=== PATIENT | male | born 1940 | race Caucasian/White ===

== ENCOUNTER → 2019-07-13 | Outpatient (CLI) | payer MEDICARE ==
[~2019-07-13] MED LIST: ASPI81TA85 PO; LISI10TA15 PO; OMEP-218 PO
--- NOTE | 2019-07-14 07:53 | RADONC ---
RADIATION ONCOLOGY CONSULTATION NOTE: DATE: 07/13/2019 CHART NUMBER: [id number] DIAGNOSIS: Prostate cancer. STAGE: III A, T2c, N0, M0, PSA 30.1, [place] score 8 (4-4), grade group 4 ECOG PERFORMANCE STATUS: 0 Mr. 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 HISTORY OF PRESENT ILLNESS: The patient was in his usual state of health and reported that he underwent the CT scan for what was thought to be kidney stones. The scan was done 02/08/2019 and showed an enlarged prostate. On 03/09/2019, the patient underwent a PSA and the PSA was found to be 38.1. On 05/19/2019, the patient underwent prostatic needle biopsy and pathology revealed a Merlin score 8 (4-4) adenocarcinoma involving almost all samples biopsied bilaterally. There is also noted to be perineural invasion. The patient has met with two urologist and has decided to undergo external beam radiation therapy with IMRT/IGRT. He is scheduled for placement of fiducial markers and initiation of Eligard on July 20, 2019. PAST MEDICAL HISTORY: The patient's past medical history is positive for bronchitis, Lyme disease. Three abdominal hernia repairs, kidney stones, arthritis and depression. He has a history of hypertension as well. ALLERGIES: The patient has no known drug allergies. SOCIAL HISTORY: The patient does not smoke cigarettes nor abuse alcohol. FAMILY HISTORY: The patient's family history is negative for prostate cancer or other malignancies. REVIEW OF SYSTEMS: The patient's review of systems is noncontributory. He denies nausea, vomiting, fevers, chills, night sweats, diplopia, headaches, anxiety or depression, anorexia, weight loss, visual disturbances, chest pain, urinary or bowel difficulties, bone pain, or neurological problems. PHYSICAL EXAMINATION: The patient is a well-developed, well-nourished male in no acute distress. HEENT exam is normocephalic, atraumatic. Extraocular movements are intact. There is no palpable cervical, supraclavicular, infraclavicular, axillary, or inguinal lymphadenopathy present. Lungs are clear to auscultation and percussion. Heart has a regular rate and rhythm. Abdomen is benign with no hepatosplenomegaly, masses, or tenderness. Rectal examination reveals a normal anal sphincter tone. His prostate is diffusely enlarged with some nodularity. Clearly palpable on the left side. Skeletal examination reveals no tenderness to pressure or percussion of the bony skeleton. Extremities reveal no clubbing, cyanosis, or edema. Neurologic exam is grossly intact, as is the remainder of the physical examination. MEDICAL NECESSITY: IMRT/IGRT is clinically indicated for the highly conformal dose planning required. The target volume is in close proximity to critical structures, such as the rectum, bladder, small bowel, and femoral heads. The volume of interest must be covered with narrow margins to adequately protect immediately adjacent structures. The plan requires interpretation of complex testing such as CT localization. As noted above, special planning (IMRT) and localizing (IGRT) is required and essential to maximally protect sensitive normal tissue structures which cannot be accomplished using conventional 3-dimensional planning. ASSESSMENT: Clearly the patient is a candidate for external beam radiation therapy and I have so informed him. I have discussed with the patient in detail the potential benefits as well as possible acute and chronic sequelae of external beam radiation therapy. We discussed logistics of treatment planning, simulation and subsequent fractionated daily radiation treatments. The patient is scheduled for initiation of a Eligard as well as placement of fiducial markers later this month. We will be undertaking simulation and initiation of treatment planning approximately 2-3 weeks post placement of the markers. The patient lives in [place] and is hoping to begin radiation after the most severe winter weather. He is rather elderly and is very uncomfortable driving in the snow. We are therefore planning on beginning radiation in August. Thank you for allowing us to participate in the care of this very pleasant gentleman. If I could be of any further assistance or provide you with any information, please free to contact me anytime. As always warm regards, cc: MD Yassine Mendieta MD Felix T. Oben, MD
== END ==
LOC: M ONCR 09:50
PROVIDERS: ATTEND Radiology Radiation Oncology
DX: C61 Malignant neoplasm of prostate (principal)

== ENCOUNTER → 2019-07-18 | Outpatient (CLI) | payer MEDICARE ==
--- NOTE | 2019-07-18 13:32 | REPPI ---
Prostate sonography: History: Prostate cancer. Transrectal sonographic guidance is provided to Dr. Mason who performed fiducial marker placement procedure. Electronically Signed by Navin Hook MD 07/18/2019 01:23 P
== END ==
LOC: M SMT PRO 09:34
PROVIDERS: ATTEND Urology
DX: C61 Malignant neoplasm of prostate (principal)
CPT/HCPCS: 55876; 76872; 76942; 96402; J9217

== ENCOUNTER 2019-08-08 13:31 | Outpatient (RCR) | payer MEDICARE ==
[2019-08-08 14:47] LABS: BASO # 0.1 10^3/uL (0.0-0.2); BASO % 0.5 % (0.0-1.0); EOS # 0.2 10^3/uL (0.0-0.5); EOS % 1.8 % (0.0-3.0); HEMATOCRIT 43.2 % (42.0-52.0); LYMPH # 3.9 10^3/uL (1.5-5.0); LYMPH % 38.1 % (24.0-44.0); MEAN CORPUSCULAR HEMOGLOBIN 29.7 pg (27.0-33.0); MEAN CORPUSCULAR HGB CONC 32.4 g/dl (32.0-36.5); MEAN CORPUSCULAR VOLUME 91.5 fl (80.0-96.0); MONO # 0.9 10^3/uL (0.0-0.8); MONO % 8.6 % (0.0-5.0); NEUTROPHILS # 5.3 10^3/uL (1.5-8.5); NEUTROPHILS % 50.8 % (36.0-66.0); PLATELET COUNT, AUTOMATED 322 10^3/uL (150-450); RED BLOOD COUNT 4.72 10^6/uL (4.30-6.10); WHITE BLOOD COUNT 10.3 10^3/uL (4.0-10.0)
== END 2019-08-26 ==
LOC: M ONCR 13:31
PROVIDERS: ATTEND Radiology Radiation Oncology
DX: C61 Malignant neoplasm of prostate (principal)

== ENCOUNTER → 2019-09-26 | Outpatient (RCR) | payer MEDICARE ==
--- NOTE | 2019-08-29 12:43 | RADONC ---
RADIATION ONCOLOGY PROGRESS NOTE DATE OF SERVICE: 08/28/2019 CHART NUMBER: [id number]. PROGRESS NOTE: Mr. Padilla was taken to the linear accelerator today and underwent his first fraction of radiation today to his prostate. It was tolerated without difficulty or discomfort. REVIEW OF SYSTEMS: The patient's review of systems is noncontributory. He denies nausea, vomiting, fevers, chills, night sweats, diplopia, headaches, anxiety or depression, anorexia, weight loss, visual disturbances, chest pain, urinary or bowel difficulties, bone pain, or neurological problems. PHYSICAL EXAMINATION: Clearly, the patient's skin showed no evidence of radiation change present as this was his first fraction. The remainder of the physical examination remains unchanged, as well. Mr. Padilla tolerated his first fraction well, and radiation will continue as scheduled.
--- NOTE | 2019-09-05 14:57 | RADONC ---
RADIATION ONCOLOGY PROGRESS NOTE DATE: 09/04/2019 CHART NUMBER: [id number] PROGRESS NOTE: Mr. Padilla is presently at a dose of 1080 cGy to his prostate and is tolerating his treatments quite well at this point. Although, he is complaining of some constipation and urinary frequency. REVIEW OF SYSTEMS: The patient's review of systems is positive for constipation and urinary frequency but is otherwise noncontributory. Denies nausea, vomiting, fevers, chills, night sweats, diplopia, headaches, anxiety or depression, anorexia, weight loss, visual disturbances, chest pain, urinary or bowel difficulties, bone pain, or neurological problems. PHYSICAL EXAMINATION: The patient's skin is in good condition with no evidence of radiation change present. There is no moist or dry desquamation. The remainder of his physical exam remains unchanged. Mr. Padilla is tolerating his treatments quite well. I have recommended that he try Pyridium and drinks some more fluids. In addition, I have recommended a stool softener and if necessary a Fleet's enema as needed. In the meantime, radiation will continue as scheduled.
--- NOTE | 2019-09-18 14:32 | RADONC ---
RADIATION ONCOLOGY PROGRESS NOTE DATE OF SERVICE: 09/18/2019 CHART NUMBER: [id number]. PROGRESS NOTE: Mr. Padilla is presently at a dose of 2520 cGy to his prostate and overall is tolerating his treatments quite well with no significant difficulties related to his radiation therapy other than some urinary urgency and frequency. He used Pyridium for 2 days without improvement. He has no other complaints related to his radiation therapy. REVIEW OF SYSTEMS: The patient's review of systems is positive for urinary frequency but is otherwise noncontributory. He denies nausea, vomiting, fevers, chills, night sweats, diplopia, headaches, anxiety or depression, anorexia, weight loss, visual disturbances, chest pain, urinary or bowel difficulties, bone pain, or neurological problems. PHYSICAL EXAMINATION: The patient's physical examination was deferred secondary to COVID-19 precautions. ASSESSMENT: Radiation is well tolerated and will continue as scheduled.
--- NOTE | 2019-09-25 13:58 | RADONC ---
RADIATION ONCOLOGY PROGRESS NOTE DATE OF SERVICE: 09/25/2019 CHART NUMBER: [id number] Mr. Padilla is thus far at a dose of 3240 cGy to his prostate and seminal vesicles and was last treated on Wednesday09/22/2019. The patient was not treated today secondary to machine breakdown. As of Wednesday, he had been tolerating treatments quite well with no significant difficulties. Radiation is scheduled to resume tomorrow once the machine is repaired.
== END ==
LOC: M ONCR 08-28 09:28
PROVIDERS: ATTEND Radiology Radiation Oncology
DX: C61 Malignant neoplasm of prostate (principal)

== ENCOUNTER → 2019-10-26 | Outpatient (RCR) | payer MEDICARE ==
[2019-10-02 12:40] LABS: APPEARANCE, URINE MANUAL HAZY (CLEAR); BILIRUBIN, URINE MANUAL OBSCURED (NEGATIVE); COLOR, URINE MANUAL ORANGE (YELLOW); GLUCOSE, URINE (UA) MANUAL NEGATIVE (NEGATIVE); KETONE, URINE MANUAL OBSCURED mg/dL (NEGATIVE); NITRITE, URINE MANUAL OBSCURED (NEGATIVE); PROTEIN, URINE MANUAL NEGATIVE (NEGATIVE); SPECIFIC GRAVITY,URINE MANUAL 1.016 (1.002-1.035); UROBILINOGEN, URINE MANUAL OBSCURED mg/dl (NORMAL)
[2019-10-02 12:42] LABS: BLOOD URINE MANUAL NEGATIVE (NEGATIVE); LEUKOCYTE ESTERASE, URINE MAN TRACE (NEGATIVE)
[2019-10-02 12:43] LABS: AMORPHOUS SEDIMENT, URINE SMALL AMOUNT (NEGATIVE); BACTERIA, URINE NONE SEEN; HYALINE CAST, URINE NONE SEEN /lpf (0-1); MUCUS, URINE SMALL AMOUNT (NEGATIVE); RBC, URINE NONE SEEN /hpf (0-3); SQUAMOUS EPITHELIAL CELL URINE SMALL AMOUNT /hpf (SMALL AMT)
--- NOTE | 2019-10-03 08:14 | RADONC ---
RADIATION ONCOLOGY PROGRESS NOTE DATE: 10/02/2019 CHART NUMBER: [id number] PROGRESS NOTE: Mr. Zuniga is presently at a dose of 4140 cGy to his prostate and is continuing to complain of urinary frequency. He has been taking Pyridium periodically a day on and 4 days of, which apparently has not helped. REVIEW OF SYSTEMS: The patient's review of systems is positive for urinary frequency reporting that he gets up maybe every hour or hour and a half in night. His review of systems is otherwise noncontributory. Denies nausea, vomiting, fevers, chills, night sweats, diplopia, headaches, anxiety or depression, anorexia, weight loss, visual disturbances, chest pain, urinary or bowel difficulties, bone pain, or neurological problems. PHYSICAL EXAMINATION: Physical examination was deferred as per COVID-19 precautions. ASSESSMENT: Radiation at this time will continue as scheduled. I have ordered a urinalysis and culture and sensitivity to rule out urinary tract infection. I have explained to the patient that he is more than welcome to take a short treatment break, which should not compromise his overall results and may alleviate some inflammation on his bladder. At this time however, the patient wishes to continue with treatments. Once again, I will review the results of his urinalysis and further recommendations will be made as indicated. In the meantime, radiation will continue as scheduled.
--- NOTE | 2019-10-09 11:26 | RADONC ---
RADIATION ONCOLOGY PROGRESS NOTE DATE: 10/09/2019 CHART NUMBER: [id number] PROGRESS NOTE: Mr. Zuniga is presently at a dose of 5040 cGy to his prostate and seminal vesicles and is complaining of urinary frequency again. He reports that he is going to urinate every half hour to hour. He has been using his Pyridium. REVIEW OF SYSTEMS: The patient's review of systems is otherwise noncontributory. Except for his frequent urination and burning his review of systems is noncontributory. Denies nausea, vomiting, fevers, chills, night sweats, diplopia, headaches, anxiety or depression, anorexia, weight loss, visual disturbances, chest pain, urinary or bowel difficulties, bone pain, or neurological problems. PHYSICAL EXAMINATION: Physical exam was deferred as per COVID-19 precautions. ASSESSMENT: I have given Mr. Padilla off for a week to allow things to settle down. He will be off at least until next Wednesday, perhaps until next Wednesday. This should not affect his overall cured rate but may alleviate some of his discomfort.
--- NOTE | 2019-10-16 14:18 | RADONC ---
RADIATION ONCOLOGY PROGRESS NOTE DATE: 10/16/2019 CHART #: [id number] Mr. Padilla is thus far at a dose of 5040 cGy to his prostate and seminal vesicles and was last treated on 10/09/2019. The patient was placed on break secondary to urinary difficulties with urinary frequency and discomfort. Pyridium did not help him. He reported he was urinating every 1/2 hour. In light of this, the patient will take off until Wednesday of this week. We will reevaluate him again at that time.
--- NOTE | 2019-10-24 00:03 | RADONC ---
RADIATION ONCOLOGY PROGRESS NOTE DATE: 10/23/2019 CHART NUMBER: [id number] Mr. Padilla is presently at a dose of 4860 cGy to his prostate and is continuing to complain of difficulty emptying his bladder with urinary frequency and obstructive symptoms. REVIEW OF SYSTEMS: The patient's review of systems is positive for his urinary complaints but is otherwise noncontributory. He denies nausea, vomiting, fevers, chills, night sweats, diplopia, headaches, anxiety or depression, anorexia, weight loss, visual disturbances, chest pain, bowel difficulties, bone pain, or neurological problems. PHYSICAL EXAMINATION: The patient's skin is in good condition with no evidence of moist or dry desquamation. The remainder of his physical exam remains unchanged. Mr. Padilla will continue with his radiation at this point. I have recommended he discontinue the Pyridium use at this time. I have sent in a prescription, however, for Flomax 0.4 mg to be used daily. We will continue to evaluate him. In the meantime, radiation will continue as scheduled.
[~2019-10-26] MED LIST changes: +FLOM0.4C39 PO
== END ==
LOC: M ONCR 09-27 09:50
PROVIDERS: ATTEND Radiology Radiation Oncology
DX: C61 Malignant neoplasm of prostate (principal)

== ENCOUNTER 2019-11-08 09:58 | Outpatient (RCR) | payer MEDICARE ==
--- NOTE | 2019-11-02 08:46 | RADONC ---
RADIATION ONCOLOGY PROGRESS NOTE DATE: 10/30/2019 CHART #: [id number] Mr. Padilla is presently at a dose of 6660 cGy to his prostate and is tolerating treatments quite well at this point with no complaints related to his radiation therapy. He is having no urinary or bowel difficulties. No bone pain. REVIEW OF SYSTEMS: The patient's review of systems is noncontributory. Denies nausea, vomiting, fevers, chills, night sweats, diplopia, headaches, anxiety or depression, anorexia, weight loss, visual disturbances, chest pain, urinary or bowel difficulties, bone pain, or neurological problems. PHYSICAL EXAMINATION: The patient's skin is in good condition with no evidence of moist or dry desquamation. The remainder of his physical exam remains unchanged. Mr. Padilla is tolerating treatments quite well and radiation will continue as scheduled.
--- NOTE | 2019-11-07 11:34 | RADONC ---
RADIATION ONCOLOGY PROGRESS NOTE DATE OF SERVICE: 11/06/2019 CHART NUMBER: [id number]. PROGRESS NOTE: Mr. Padilla is presently at a dose of 7560 cGy to his prostate and is tolerating treatments quite well at this point with no significant difficulties related to his radiation therapy. He is using Flomax, which has helped significantly with his urinary hesitancy and frequency. REVIEW OF SYSTEMS: The patient's review of systems is noncontributory. He denies nausea, vomiting, fevers, chills, night sweats, diplopia, headaches, anxiety or depression, anorexia, weight loss, visual disturbances, chest pain, urinary or bowel difficulties, bone pain, or neurological problems. PHYSICAL EXAMINATION: The patient's skin is in good condition with no evidence of radiation change present. There is no moist or dry desquamation. The remainder of his physical exam remains unchanged. Mr. Padilla is tolerating treatments quite well, and radiation will continue as scheduled.
--- NOTE | 2019-11-13 09:44 | RADONC ---
RADIATION ONCOLOGY TREATMENT SUMMARY DATE OF SERVICE: 11/08/2019 CHART NUMBER: [id number]. DIAGNOSIS: Prostate cancer. STAGE: IIIA, T2c, N0, M0, PSA 30.1, Merlin score 8 (4 - 4), grade group 4. ECOG PERFORMANCE STATUS : 0. TREATMENT SUMMARY: Mr. Padilla is a very pleasant 79-year-old white male with the diagnosis what appears to be a stage IIIA, [id number] poorly differentiated, Merlin score 8 (4 - 4) adenocarcinoma of the prostate with an initial PSA level of 30.1 who presented to us for consideration of definitive external beam radiation therapy with IMRT/IGRT. We treated the patient to his prostate for a total dose of 7920 cGy delivered in 44 fractions of 180 cGy each over 70 elapsed days from 08/28/2019 through 11/08/2019. The patient's prostate was treated on a linear accelerator utilizing a 6 MV photon beam via IMRT/IGRT. We initially treated the prostate seminal vesicles and first echelon of lymph nodes to a dose of 4500 cGy in 25 fractions of 180 cGy each. We subsequently coned down to deliver another 900 cGy to the prostate and seminal vesicles in five fractions of 180 cGy each, bringing the seminal vesicles to a total dose of 5400 cGy. The prostate itself was then boosted for an additional 2520 cGy once again, bringing it to a total dose of 7920 cGy. Mr. Padilla tolerated his treatments quite well, was able complete therapy as prescribed. I have scheduled the patient to see me again in 1 month for further followup. He will also continue to be followed by his other physicians, as well. cc: MD Yassine Mendieta MD Felix T. Oben, MD
== END 2019-11-26 ==
LOC: M ONCR 09:58
PROVIDERS: ATTEND Radiology Radiation Oncology
DX: C61 Malignant neoplasm of prostate (principal)

== ENCOUNTER → 2019-12-13 | Outpatient (CLI) | payer MEDICARE ==
[~2019-12-13] MED LIST changes: -ASPI81TA85 PO; +ASPI81TA86 PO
--- NOTE | 2019-12-14 16:38 | RADONC ---
RADIATION ONCOLOGY FOLLOWUP NOTE DATE: 12/13/2019 This is a telemedicine visit. The patient was informed of the risks including security breech, technological failure, inability to perform a comprehensive physical exam which could delay or prevent an accurate diagnosis, and potential complications from treatment decisions rendered over a telemedicine platform. The patient understands and consented to the use of telehealth services phone only. CHART NUMBER: [id number] DIAGNOSIS: Prostate cancer. STAGE: Stage III A, T2c, N0, M0, PSA 30.1, Merlin score 8 (4-4), grade group 4. ECOG PERFORMANCE STATUS: 0 FOLLOWUP NOTE: Mr. Padilla is a very pleasant 79-year-old white male with the diagnosis what appears to be a stage III A, T2c, N0, M0 poorly differentiated, [place] score 8 (4-4) adenocarcinoma of the prostate with an initial PSA level of 30.1 who is presenting to us today for routine followup visit 1 month post completion of external beam radiation therapy. The patient presents today reporting that he is having no significant difficulties other than some depression and lack of energy, most likely secondary to his depression. He reports that his urination is improving on a daily basis and he no longer goes to the bathroom very much in the daytime or even in the evening. His bowel movements are normal. He has no bone pain. REVIEW OF SYSTEMS: The patient's review of systems is positive for some depression and lack of energy. It is otherwise noncontributory except for some urinary frequency still. Denies nausea, vomiting, fevers, chills, night sweats, diplopia, headaches, anxiety or depression, anorexia, weight loss, visual disturbances, chest pain, bowel difficulties, bone pain, or neurological problems. PHYSICAL EXAMINATION: Physical examination was deferred as per COVID-19 precautions. ASSESSMENT: The patient is clinically doing quite well, and a PSA level done 12/08/2019 was only 1.02. The patient and I had a very lengthy discussion with regards to the economic downfall secondary to the COVID closings as well as his isolation and inability to visit people or go out where he used to go out before COVID precautions. Reports that he has no energy to do anything. I did speak with this patient at length, and I believe he is having situational melancholy secondary to the COVID issues, which are affecting the whole country. I do not think any of this is actually related to his disease, and the patient is clinically LEYDA at this time. Of course radiation can add to his fatigue and his Eligard treatments may also be contributing somewhat. In light of his present complaints and the fact that we are unable to do a physical examination today, I have set him up for routine followup in our office in 4 months' time as well. He is scheduled see Dr. aMson next month for further Eligard treatment. cc: MD Yassine Mendieta MD Felix T. Oben, MD
== END ==
LOC: M ONCR 10:24
PROVIDERS: ATTEND Radiology Radiation Oncology
DX: C61 Malignant neoplasm of prostate (principal)

== ENCOUNTER → 2020-04-10 | Outpatient (CLI) | payer MEDICARE ==
--- NOTE | 2020-04-10 15:37 | RADONC ---
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 He continues on ADT with Dr. Mason for a planned 2 years. He is due in June 2020 for his next injection. Diagnosis/Treatment History Oncologic History PSA history 03/09/19 38.1 ng/ml 12/08/19 1.02 04/02/20 0.1 EBRT 79.2 Gy in 44 fractions 08/28/19-11/08/19 Interval History Patient reports loose BM 4 times daily, no bleeding since radiation. Not taking anything for it. Also getting up 2x nightly to void. Feels he empties well with flomax. No daytime urgency or frequency. Tried to stop flomax last month found he was up every hours or so at night. Weight stable appetite and energy levels good. Has occasional hot flashes on ADT. No additional ADT related complaints. Current Therapy Eligard q6m plan for 2 years started June 2018 Stage High risk prostate cancer [id number] [place] 4+4=8 PSA 30.1 Social History: Non-smoker Non-drinker Allergies / Meds Home Meds Active Scripts Tamsulosin HCl (Flomax) 0.4 Mg Capsule, 0.4 MG PO DAILY for 30 Days, #30 CAP 5 Refills Prov:Yassine Ramos 10/23/19 Reported Medications Aspirin (Aspir 81) 81 Mg Tablet., 81 MG PO DAILY for pain for 30 Days, #30 TAB 07/13/19 Omeprazole (Omeprazole) 20 Mg Capsule.dr, 20 MG PO DAILY for 30 Days, #30 CAP 07/13/19 Lisinopril/Hydrochlorothiazide (Lisinopril-Hctz 10-12.5 mg Tab) 1 Each Tablet, 1 TAB PO DAILY for 30 Days, #30 TAB 07/13/19 Review of Systems Review of Systems Constitutional: Denies: ROS Unabtainable, Chills, Fever, Malaise, Night Sweats, Weakness, Fatigue, Weight Loss, Lethargy, Normal appetite, Other symptoms Eyes: Denies: Pain, Vision change, Conjunctivae inflammation, Eyelid inflammation, Redness, Other HEENT: Denies: Head Aches, Ear Pain, Dysphagia, Sinus Congestion, Post Nasal Drip, Sore Throat, Epistaxis, Other Symptoms Skin: Denies: Rash, Lesions, Jaundice, Bruising, Other Pulmonary: Denies: Dyspnea, Cough, Pleuritic Chest Pain, Other Symptoms Cardiovascular: Denies: Chest Pain, Palpitations, Orthopnea, Paroxysmal Noc. Dyspnea, Edema, Lt Headedness, Other Symptoms Gastrointestinal: Reports: Diarrhea; Denies: Nausea, Vomiting, Constipation, Hematochezia Genitourinary: Denies: Dysuria, Frequency, Incontinence, Hematuria, Retention Hematologic: Denies: Bruising, Bleeding Excessively, Petecchia, Purpura, Enlarged Lymph Nodes, Other Hematologic Endocrine: Denies: Polydipsia, Polyphagia, Polyuria, Heat Intolerance, Cold Intolerance, Other Endocrine Sx Musculoskeletal: Denies: Neck pain, Shoulder pain, Arm pain, Back pain, Hand pain, Leg pain, Foot pain, Joint pain, Muscle pain, Spasms, Gout, Joint sweling, Muscle stiffness, Midthoracic pain, Other Neurological: Denies: Weakness, Numbness, Incoordination, Change in Speech, Confusion, Seizures, Other Symptoms Psych: Denies: Mood Normal, Anxiety, Depression, Memory Issues, Thoughts of Self Harm, Anger, Thoughts of harming Other, Other Psych Physical Examination Vital Signs Wt 229 lb T 97.4 P 81 RR 16 BP 173/79 O2 95% Pain 0 Fatigue 0 General Exam: Positive: Alert, Cooperative, No Acute Distress Eye Exam: Positive: PERRLA, EOMI ENT EXAM: Positive: Atraumatic, Pharynx Normal Neck Exam: Positive: Supple Chest Exam: Positive: Clear to auscultation, Normal air movement Heart Exam: Positive: Rate Normal, Regular Rhythm Abdomen Exam: Positive: Normal bowel sounds, Soft; Negative: Tenderness Extremity Exam: Negative: Edema Skin Exam: Positive: Nl turgor and temperature Neuro Exam: Positive: Normal Gait, Normal Speech, Cranial Nerves 3-12 NL Psych Exam: Positive: Mental status NL, Mood NL, Anxiety Other Physical Findings Deferred given undetectable PSA Diagnostic and Laboratory Diagnostic Review Radiologic images, relevant labs and pathology reports were personally reviewed and discussed with Mr. Padilla. Assessment and Plan Impression Assessment Mr. 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 He continues on ADT with Dr. Mason for a planned 2 years. He is due in June 2020 for his next injection. He has some residual GI side effects, namely diarrhea. I encouraged him to take imodium as needed for this. With respect to his urination, I asked him to try taking 0.8 mg of flomax nightly. He was tolerating 0.4 mg without orthostatic hypotension symptoms. This may get him down to 1x nocturia. We discussed PSA is appropriately suppressed given ADT but that the real test of biochemical response will come after ADT is complete in the months following June 2020 when he will complete 2 years and testosterone normalizes. In the meantime I will see him in 6 months Plan 6 months with PSA Increase flomax to 0.8 mg qhs Imodium PRN for diarrhea Mr. Padilla was encouraged to call with questions or concerns in the interim period. RAJENDRA BAPTISTE MD Apr 10, 2020 15:37
== END ==
LOC: M ONCR 13:03
PROVIDERS: ATTEND General Practice
DX: C61 Malignant neoplasm of prostate (principal)

== ENCOUNTER → 2020-10-16 | Outpatient (CLI) | payer MEDICARE ==
[~2020-10-16] MED LIST changes: +ASPI81CH33 PO; +INDA125TA PO; +LEUP45SY SQ; +NORV5TAB PO; +POTA20TA6 PO; +TERB250T12 PO
--- NOTE | 2020-10-16 14:56 | RADONC ---
Radiation Oncology Hx/FUP Radiation Oncology Hx/FUP Date of Service: Oct 16, 2020 Pt Identifier Efrain Padilla is a 80 year old male seen for a followup visit today at the department of radiation oncology for a history of high risk prostate cancer T2c [place] 4+4=8 PSA 30.1, he completed EBRT 79.2 Gy in 44 fractions on 11/08/19. He continues on ADT with Dr. Mason for a planned 2 years. Due for final 6 month eligard in December 2020. Diagnosis/Treatment History Oncologic History PSA history 03/09/19 38.1 ng/ml 12/08/19 1.02 04/02/20 0.1 10/09/20 <0.1 EBRT 79.2 Gy in 44 fractions 08/28/19-11/08/19 Eligard from June 2019-present Interval History Efrain has normalized bowel habits 2x daily, previous 4x. No BRBPR. No urinary complaints continues flomax. Main complaint is intractable fatigue and listlessness. He attributes this to Eligard. Also being worked up for arrhythmia per his report. He states he has gained 10 lbs. Endorses ankle swelling. Also feels arms and legs are weak and 'heavy'. Current Therapy Eligard from June 2019 with plan for 24 months therapy Stage High risk prostate cancer [id number] [place] 4+4=8 PSA 30.1 Social History: Non-smoker Non-drinker Allergies / Meds Home Meds Active Scripts Tamsulosin HCl (Flomax) 0.4 Mg Capsule, 0.4 MG PO DAILY for 30 Days, #30 CAP 5 Refills Prov:Yassine Ramos 10/23/19 Reported Medications Potassium Chloride (Potassium Chloride) 20 Meq Tab.er.prt, 1 TAB PO DAILY for 30 Days, #30 TAB 10/16/20 Indapamide (Indapamide) 1.25 Mg Tablet, 1.25 MG PO DAILY for 30 Days, #30 TAB 10/16/20 Terbinafine HCl (Terbinafine HCl) 250 Mg Tablet, 250 MG PO DAILY for 30 Days, #30 TAB 10/16/20 Leuprolide Acetate (Fensolvi) 45 Mg (Pediatric 6 Month) Syringe, 45 MG SQ Q6MOS, SYRINGE 10/16/20 Amlodipine Besylate (Norvasc) 5 Mg Tablet, 1 TAB PO DAILY for 30 Days, #30 TAB 10/16/20 Aspirin (Aspirin) 81 Mg Tab.chew, 81 MG PO DAILY for pain for 30 Days, #30 TAB 10/16/20 Omeprazole (Omeprazole) 20 Mg Capsule.dr, 20 MG PO DAILY for 30 Days, #30 CAP 07/13/19 Lisinopril/Hydrochlorothiazide (Lisinopril-Hctz 10-12.5 mg Tab) 1 Each Tablet, 1 TAB PO DAILY for 30 Days, #30 TAB 07/13/19 Review of Systems Review of Systems Constitutional: Reports: Fatigue; Denies: Chills, Fever, Weight Loss Eyes: Denies: Pain HEENT: Denies: Head Aches Skin: Denies: Rash Pulmonary: Denies: Dyspnea, Cough Cardiovascular: Reports: Palpitations, Edema; Denies: Chest Pain Gastrointestinal: Denies: Nausea, Vomiting, Diarrhea, Hematochezia Genitourinary: Denies: Dysuria, Frequency, Retention Hematologic: Denies: Bruising Musculoskeletal: Reports: Leg pain; Denies: Neck pain Neurological: Denies: Weakness, Numbness Psych: Reports: Mood Normal Physical Examination Vital Signs Wt 235 lbs T 95 P 80 RR 20 BP 173/84 O2 96% Pain 0 Fatigue 3 General Exam: Positive: Alert, Cooperative; Negative: No Acute Distress Eye Exam: Positive: PERRLA, EOMI ENT EXAM: Positive: Atraumatic Neck Exam: Positive: Supple; Negative: Lymphadenopathy Chest Exam: Positive: Clear to auscultation Heart Exam: Positive: Rate Normal Abdomen Exam: Positive: Soft; Negative: Tenderness Extremity Exam: Positive: Edema (2+ to knees) Skin Exam: Positive: Nl turgor and temperature Neuro Exam: Positive: Normal Gait, Normal Speech, Cranial Nerves 3-12 NL Psych Exam: Positive: Mental status NL Diagnostic and Laboratory Diagnostic Review Radiologic images, relevant labs and pathology reports were personally reviewed and discussed with Mr. Padilla. Assessment and Plan Impression Assessment Mr. Padilla is a 80 year old male with a history of high risk prostate cancer T2c [place] 4+4=8 PSA 30.1, he completed EBRT 79.2 Gy in 44 fractions on 11/08/19. He continues on ADT with Dr. Mason for a planned 2 years. Due for final 6 month eligard in December 2020. PSA appropriately suppressed on ADT He is struggling with fatigue and muscle loss. This may be ADT related. I explained that for his high risk prostate cancer one may consider 18-24 months o f ADT standard of care, thus he could strongly consider omitting the last of the planned 6 month injections when he sees Dr. Mason next. Given his symptoms and impact on QOL this would be reasonable even if he is foregoing any small benefit with respect to prostate cancer control probability. He may also have some degree of heart failure as he described some ongoing cardiac workup and he has swelling in the extremities and weight gain which could be signs of this too. He has well-compensated urinary and bowel function. No need for medication changes. I will see him again in 12 months in effort to split follow up with Dr. Silvestre crabtree. Performance Status ECOG 2 Plan 12 months with PSA/testosterone Mr. Padilla was encouraged to call with questions or concerns in the interim period. Billing Statement Total time of [20] minutes was spent preparing for the visit [1], obtaining HPI [4], examining the patient [1], reviewing diagnostic tests [1], discussing management options [6], coordinating care [0], and writing this note [7]. RAJENDRA BAPTISTE MD Oct 16, 2020 14:56
== END ==
LOC: M ONCR 13:23
PROVIDERS: ATTEND General Practice
DX: C61 Malignant neoplasm of prostate (principal)

== ENCOUNTER → 2021-10-15 | Outpatient (CLI) | payer MEDICARE ==
[~2021-10-15] MED LIST changes: +DRIS50003 PO; +INDA25TAB PO; -LISI10TA15 PO; +LISI10TA24 PO; +LOSA25TA13 PO; +OMEP-173 PO; -OMEP-218 PO; +POTA-151 PO; -POTA20TA6 PO; -TERB250T12 PO; +TERB250T91 PO
== END ==
LOC: M ONCR 12:54
PROVIDERS: ATTEND Radiology Radiation Oncology
DX: C61 Malignant neoplasm of prostate (principal); M25.551 Pain in right hip; M25.552 Pain in left hip; R39.11 Hesitancy of micturition; Z92.3 Personal history of irradiation

== ENCOUNTER → 2021-12-22 | Outpatient (REF) | payer MEDICARE ==
[2021-12-22 18:05] LABS: APPEARANCE, URINE CLEAR (CLEAR); BACTERIA, URINE AUTO NEGATIVE (NEGATIVE); BILIRUBIN, URINE AUTO NEGATIVE (NEGATIVE); BLOOD, URINE BLOOD NEGATIVE (NEGATIVE); COLOR, URINE YELLOW (YELLOW); GLUCOSE, URINE (UA) AUTO NEGATIVE (NEGATIVE); KETONE, URINE AUTO NEGATIVE (NEGATIVE); LEUKOCYTE ESTERASE, URINE AUTO NEGATIVE (NEGATIVE); MUCUS, URINE SMALL (NEGATIVE); NITRITE, URINE AUTO NEGATIVE (NEGATIVE); PROTEIN, URINE AUTO NEGATIVE (NEGATIVE); RBC, URINE AUTO 0 /HPF (0-3); SPECIFIC GRAVITY URINE AUTO 1.018 (1.002-1.035); SQUAMOUS EPITHELIAL CELL UR AU 0 /HPF (0-6); UROBILINOGEN, URINE AUTO 0.2 mg/dL (0.0-2.0); WBC, URINE AUTO 0 /HPF (0-3)
== END ==
LOC: M SMT 16:51
PROVIDERS: ATTEND Physician Assistant
DX: R30.0 Dysuria (principal)

== ENCOUNTER 2022-01-30 12:16 | Day surgery (SDC) | payer MEDICARE ==
[~2022-01-30] VITALS: Ht 165.1 cm; Wt 107.9 kg
[~2022-01-30 12:16] MED LIST changes: +INDA1.253 PO; -INDA125TA PO; +ceFAZolin SOD 2 GM in IV 1 EA IV ONE
[2022-01-30] MEDS ORDERED: LR 1,000 ML IV SCH ×2 (12:45→16:20)
[2022-01-30] MEDS ORDERED: LIDOCAINE 2% 100MG/5ML SDV (FOR ANES.) As Ordered ONE (13:22)
[2022-01-30] MEDS ORDERED: propofoL 200 MG/20 ML VIAL As Ordered ONE (13:22)
[2022-01-30] MEDS ORDERED: fentaNYL 100 MCG/2 ML INJECTION As Ordered ONE ×2 (13:22→15:24)
[2022-01-30] MEDS ORDERED: MIDAZOLAM INJ 2MG/2ML VIAL (J2250 PER 1MG) As Ordered ONE (13:22)
[2022-01-30] MEDS ORDERED: ROCURONIUM BROMIDE 50 MG/5 ML VIAL As Ordered ONE (14:34)
[2022-01-30] MEDS ORDERED: ePHEDrine SULFATE 25 MG/5 ML(5MG/ML) SYRINGE As Ordered ONE ×2 (14:52→15:21)
[2022-01-30] MEDS ORDERED: ONDANSETRON 4MG 2ML VIAL As Ordered ONE (15:21)
[2022-01-30] MEDS ORDERED: dexameTHASONE 4 MG/ML 1ML VIAL (J1100 PER 1MG) As Ordered ONE (15:21)
[2022-01-30] MEDS ORDERED: LABETALOL 100MG/20ML VIAL As Ordered ONE (15:45)
[2022-01-30] MEDS ORDERED: FUROSEMIDE 100MG/10ML VIAL (J1940) As Ordered ONE (15:55)
[2022-01-30] MEDS ORDERED: SUGAMMADEX SODIUM 500 MG/5 ML VIAL (BRIDION) As Ordered ONE (16:06)
[2022-01-30] MEDS ORDERED: ONDANSETRON 4MG 2ML VIAL IV PRN (16:20)
[2022-01-30] MEDS ORDERED: fentaNYL 100 MCG/2 ML INJECTION IV PRN (16:20)
[2022-01-30] MEDS ORDERED: PERCOCET 5MG/325MG TAB PO PRN (16:20)
[2022-01-30] MEDS ORDERED: MORPHINE 2 MG/ML 1ML VIAL IV PRN (16:20)
[2022-01-30] MEDS ORDERED: CIPR-250 PO ×2 (16:36→18:36)
[2022-01-30] MEDS ORDERED: ACETAMINOPHEN TAB 650MG DOSE (2X325MG) PO PRN (17:20)
[2022-01-30 17:50] VITALS: BP 140/70
== END 2022-01-30 18:29 | disposition home or self-care (01) ==
LOC: M SDC 12:16
PROVIDERS: ATTEND Urology
DX: N40.1 Benign prostatic hyperplasia with lower urinary tract symptoms (principal); N32.89 Other specified disorders of bladder; I10 Essential (primary) hypertension; K21.9 Gastro-esophageal reflux disease without esophagitis; G43.909 Migraine, unspecified, not intractable, without status migrainosus; Z92.3 Personal history of irradiation; Z79.899 Other long term (current) drug therapy
CPT/HCPCS: 52234; 52601; 88305; J0690; J1100; J1940; J2405; J3010

== ENCOUNTER → 2022-04-22 | Outpatient (CLI) | payer MEDICARE ==
[~2022-04-22] MED LIST changes: +CIPR-250 PO; -ceFAZolin SOD 2 GM in IV 1 EA IV ONE
== END ==
LOC: M ONCR 13:46
PROVIDERS: ATTEND General Practice
DX: C61 Malignant neoplasm of prostate (principal); R39.15 Urgency of urination; Z92.21 Personal history of antineoplastic chemotherapy; Z79.899 Other long term (current) drug therapy

== ENCOUNTER 2024-01-27 09:54 | Day surgery (SDC) | payer MEDICARE ==
[~2024-01-27] VITALS: Ht 165.1 cm; Wt 106.1 kg
[~2024-01-27 09:54] MED LIST changes: +GABA-1171 PO; +INDA2.5T2 PO; -INDA25TAB PO; +LOSA100T46 PO; +PHENYLEPHRINE 10% OPHTH SOL 5ML OS PRN; +VITA500038 PO
[2024-01-27] MEDS: OFLOXACIN 0.3 % (OCUFLOX) OPTH SOL 5ML OS ONE (10:22)
[2024-01-27] MEDS: PHENYLEPHRINE 2.5% OPHTH SOL 2ML OS SCH (10:23)
[2024-01-27] MEDS: LIDOCAINE 3.5 % 1ML OPHTH TOPICAL GEL OU ONE (10:23)
[2024-01-27] MEDS: TROPICAMIDE 1% OPHTH SOLN 15ML OS SCH (10:23)
[2024-01-27] MEDS: ATROPINE SULFATE 1% OPHTH SOLN 2ML BTL OS SCH (10:23)
[2024-01-27] MEDS: LIDOCAINE 1% SDV 5ML VIAL As Ordered ONE (10:52)
[2024-01-27] MEDS: BSS IRRIG/VANCO(10MG)/TOBRA(5MG)/EPINEPH(1:1000-0.5CC)500ML BAG-ORONLY As Ordered ONE (10:57)
[2024-01-27] MEDS: CEFUROXIME 1MG/0.1ML INTRACAMERAL INJ As Ordered ONE (11:05)
[2024-01-27 11:13] VITALS: BP 126/67; TEMP 97; O2SAT 96
== END 2024-01-27 11:30 | disposition home or self-care (01) ==
LOC: M SDC 09:54
PROVIDERS: ATTEND Ophthalmology
DX: H25.12 Age-related nuclear cataract, left eye (principal); H57.03 Miosis; I10 Essential (primary) hypertension; E11.9 Type 2 diabetes mellitus without complications; Z86.73 Personal history of transient ischemic attack (TIA), and cerebral infarction without residual deficits; Z85.46 Personal history of malignant neoplasm of prostate; K21.9 Gastro-esophageal reflux disease without esophagitis; Z79.899 Other long term (current) drug therapy; Z92.3 Personal history of irradiation
CPT/HCPCS: 66982; 92015; J0697; V2632

== ENCOUNTER → 2024-07-20 | Outpatient (CLI) | payer MEDICARE ==
[~2024-07-20] MED LIST changes: -PHENYLEPHRINE 10% OPHTH SOL 5ML OS PRN
[2024-07-20 13:44] LABS: BASO # 0.1 10^3/uL (0.0-0.2); BASO % 0.5 % (0.0-1.0); EOS # 0.2 10^3/uL (0.0-0.5); EOS % 1.5 % (0.0-3.0); HEMOGLOBIN 12.1 g/dl (13.5-17.5); LYMPH # 2.4 10^3/uL (1.5-5.0); LYMPH % 22.8 % (24.0-44.0); MEAN CORPUSCULAR HEMOGLOBIN 29.2 pg (27.0-33.0); MEAN CORPUSCULAR HGB CONC 31.8 g/dl (32.0-36.5); MEAN CORPUSCULAR VOLUME 91.6 fl (80.0-96.0); MONO # 0.9 10^3/uL (0.0-0.8); MONO % 8.6 % (2.0-8.0); NEUTROPHILS # 6.9 10^3/uL (1.5-8.5); NEUTROPHILS % 66.3 % (36.0-66.0); PLATELET COUNT, AUTOMATED 372 10^3/uL (150-450); RED BLOOD COUNT 4.15 10^6/uL (4.30-6.10); WHITE BLOOD COUNT 10.5 10^3/uL (4.0-10.0)
[2024-07-20 13:47] LABS: ALBUMIN 3.2 G/DL (3.2-5.2); ALKALINE PHOSPHATASE 67 U/L (40-129); ALT/SGPT 23 U/L (7.0-40); AST/SGOT 16 U/L (<34); BILIRUBIN,TOTAL 0.3 MG/DL (0.3-1.2); BLOOD UREA NITROGEN 31 MG/DL (9-23); CALCIUM LEVEL 9.9 MG/DL (8.3-10.6); CARBON DIOXIDE LEVEL 28 MMOL/L (20-31); CHLORIDE LEVEL 105 MMOL/L (98-107); GLOMERULAR FILTRATION RATE 51.5 (>35); GLUCOSE, FASTING 79 MG/DL (74-106); POTASSIUM SERUM 4.6 MMOL/L (3.5-5.1); SODIUM LEVEL 141 MMOL/L (136-145); TOTAL PROTEIN 7.6 G/DL (5.7-8.2)
[2024-07-20 13:49] LABS: CARCINOEMBRYONIC ANTIGEN < 2.0 NG/ML (<2.5)
== END ==
LOC: M ONCR 11:24
PROVIDERS: ATTEND General Practice
DX: C20 Malignant neoplasm of rectum (principal); C61 Malignant neoplasm of prostate; Z92.3 Personal history of irradiation; Z92.29 Personal history of other drug therapy; Z79.899 Other long term (current) drug therapy
CPT/HCPCS: 36415; 80053; 82378; 85025; G0463

== ENCOUNTER → 2024-08-07 | Outpatient (CLI) | payer MEDICARE ==
[~2024-08-07] MED LIST changes: +PROHANCE 279.3MG/ML 15ML VIAL As Ordered ONE; +PROHANCE 279.3MG/ML 5ML VIAL As Ordered ONE
== END ==
LOC: M RAD 14:50
PROVIDERS: ATTEND General Practice
DX: C20 Malignant neoplasm of rectum (principal); K57.90 Diverticulosis of intestine, part unspecified, without perforation or abscess without bleeding
CPT/HCPCS: 72197; A9576

== ENCOUNTER 2024-08-18 08:54 | Outpatient (RCR) | payer MEDICARE ==
[~2024-08-18 08:54] MED LIST changes: -GABA-1172 PO; -LIDO30CR18 TOP; -LIDOCAINE 1% MDV 20ML VIAL As Ordered ONE; -MIDAZOLAM INJ 2MG/2ML VIAL IV PRN; -NEPR1LIQ2 PO; -NS (Normal Saline) 0.9% 1,000 ML IV SCH; -ONDA-284 PO; -PROC10TA5 PO; -PYRI1TAB5 PO; -SEVE800T3 PO; -SODIUM CHLORIDE 0.9% INJ 10 ML SYR IV SCH; -TRAZ-252 PO; -fentaNYL 100 MCG/2 ML INJECTION IV PRN
[2024-09-01] MEDS ORDERED: PYRI1TAB5 PO (10:57)
[2024-09-05] MEDS ORDERED: ONDA-284 PO (09:25)
[2024-09-05] MEDS ORDERED: PROC10TA5 PO (09:25)
[2024-09-05] MEDS ORDERED: LIDO30CR18 TOP (09:25)
[2024-09-05] MEDS ORDERED: TRAZ-252 PO (11:25)
== END 2024-08-25 ==
LOC: M ONCR 08:54
PROVIDERS: ATTEND General Practice
DX: Z51.0 Encounter for antineoplastic radiation therapy (principal); C20 Malignant neoplasm of rectum

== ENCOUNTER → 2024-08-18 | Outpatient (CLI) | payer MEDICARE ==
[~2024-08-18] MED LIST changes: +GABA-1172 PO; +LIDO30CR18 TOP; +LIDOCAINE 1% MDV 20ML VIAL As Ordered ONE; +MIDAZOLAM INJ 2MG/2ML VIAL IV PRN; +NEPR1LIQ2 PO; +NS (Normal Saline) 0.9% 1,000 ML IV SCH; +ONDA-284 PO; +PROC10TA5 PO; -PROHANCE 279.3MG/ML 15ML VIAL As Ordered ONE; -PROHANCE 279.3MG/ML 5ML VIAL As Ordered ONE; +PYRI1TAB5 PO; +SEVE800T3 PO; +SODIUM CHLORIDE 0.9% INJ 10 ML SYR IV SCH; +TRAZ-252 PO; +fentaNYL 100 MCG/2 ML INJECTION IV PRN
[2024-08-18 10:10] VITALS: TEMP 97.2
[2024-08-18] MEDS: ceFAZolin SOD 2 GM in IV 1 EA IV ONE (10:47)
[2024-08-18 11:34] VITALS: BP 178/81; O2SAT 97
[2024-08-18] MEDS: LIDOCAINE 1% MDV 20ML VIAL SC ONE (11:36)
== END ==
LOC: M IRPRO 09:57
PROVIDERS: ATTEND Specialist
DX: C20 Malignant neoplasm of rectum (principal)
CPT/HCPCS: C1894; J0690; J1642

== ENCOUNTER → 2024-09-05 | Outpatient (CLI) | payer MEDICARE ==
[~2024-09-05] MED LIST changes: +LIDO30CR18 TOP; +ONDA-284 PO; +PROC10TA5 PO; +PYRI1TAB5 PO; +TRAZ-252 PO
== END ==
LOC: M ONCR 10:52
PROVIDERS: ATTEND General Practice
DX: C20 Malignant neoplasm of rectum (principal); Z92.3 Personal history of irradiation; Z96.0 Presence of urogenital implants; G47.00 Insomnia, unspecified

== ENCOUNTER → 2024-09-19 | Outpatient (CLI) | payer MEDICARE ==
[~2024-09-19] MED LIST changes: +GABA-1172 PO
== END ==
LOC: M ONCR 10:12
PROVIDERS: ATTEND General Practice
DX: Z01.89 Encounter for other specified special examinations (principal); R53.83 Other fatigue; Z92.21 Personal history of antineoplastic chemotherapy

== ENCOUNTER 2024-09-22 11:13 | Inpatient (IN) | payer MEDICARE ==
[~2024-09-22] VITALS: Ht 165.1 cm; Wt 104.5 kg
[~2024-09-22 11:13] MED LIST changes: -GABA-1172 PO
[2024-09-22 11:59] LABS: VENOUS BASE EXCESS -5.2 (-2.0-2.0); VENOUS HCO3 19.9 MMOL/L (23.0-27.0); VENOUS O2 SATURATION 81.5 % (60.0-80.0); VENOUS PARTIAL PRESSURE O2 47.9 mmHg (30.0-50.0); VENOUS PH 7.348 UNITS (7.330-7.430); VENOUS STANDARD HCO3 19.9 MMOL/L
[2024-09-22 12:20] LABS: HEMATOCRIT 28.6 % (42.0-52.0); HEMOGLOBIN 9.2 g/dl (13.5-17.5); MEAN CORPUSCULAR HEMOGLOBIN 29.1 pg (27.0-33.0); MEAN CORPUSCULAR HGB CONC 32.2 g/dl (32.0-36.5); MEAN CORPUSCULAR VOLUME 90.5 fl (80.0-96.0); PLATELET COUNT, AUTOMATED 360 10^3/uL (150-450); RED BLOOD COUNT 3.16 10^6/uL (4.30-6.10); WHITE BLOOD COUNT 28.6 10^3/uL (4.0-10.0)
[2024-09-22 12:26] LABS: ALBUMIN 1.9 G/DL (3.2-5.2); BILIRUBIN,DIRECT 0.2 MG/DL (<0.4); BILIRUBIN,TOTAL 0.3 MG/DL (0.3-1.2); CALCIUM LEVEL 8.4 MG/DL (8.3-10.6); CREATININE FOR GFR 5.55 MG/DL (0.70-1.30); GLOMERULAR FILTRATION RATE 10.5 (>35); POTASSIUM SERUM 4.8 MMOL/L (3.5-5.1); TOTAL PROTEIN 5.5 G/DL (5.7-8.2)
[2024-09-22 12:30] LABS: THYROID STIMULATING HORMONE 2.62 uIU/ML (0.55-4.78)
[2024-09-22 12:46] LABS: ATYPICAL LYMPH 1 % (0-5); LYMPHOCYTES 1 % (16-44); MONOCYTES 12 % (0-5); NEUTROPHILS 85 % (28-66); PLATELET ESTIMATE NORMAL (NORMAL)
[2024-09-22 12:47] LABS: ANISOCYTOSIS 1+; PLATELET CLUMPS SMALL AMT; POIKILOCYTOSIS 1+; POLYCHROMASIA 1+; SCHISTOCYTES 1+
[2024-09-22 12:48] LABS: SPHEROCYTES 1+
[2024-09-22] MEDS: cefTRIAXone SOD 2 GM in DEXTROSE 5% (D5W) ADV/MINI-BAG 50 ML IV ONE (12:50)
[2024-09-22] MEDS: NS (Normal Saline) 0.9% 2,860 ML in IV 1 EA IV ONE (12:50)
[2024-09-22 13:20] LABS: KETONE, URINE AUTO RFX NEGATIVE (NEGATIVE); NITRITE, URINE AUTO RFX NEGATIVE (NEGATIVE); RBC, URINE AUTO RFX 56 /HPF (0-3); SQUAM EPITHELIAL CELL UR AURFX 0 /HPF (0-6)
[2024-09-22 13:23] LABS: LEUKOCYTE ESTERASE UR AUTO RFX 2+ (NEGATIVE); WBC, URINE AUTO RFX TNTC /HPF (0-3)
[2024-09-22] MEDS: ACETAMINOPHEN 325 MG TAB PO ONE (13:45)
[2024-09-22 15:33] LABS: MAGNESIUM LEVEL 1.6 MG/DL (1.8-2.4)
[2024-09-22] MEDS ORDERED: FLUID PLACE HOLDER IV SCH (16:05)
[2024-09-22] MEDS ORDERED: VANCOMYCIN HCL IV SCH (16:05)
[2024-09-22] MEDS ORDERED: MOM 30ML SUSPENSION UDC PO PRN (16:05)
[2024-09-22] MEDS: LR 1,000 ML IV SCH (16:05)
[2024-09-22] MEDS ORDERED: HOME MED LIST COMPLETE! XX SCH (16:40)
[2024-09-22] MEDS ORDERED: PROC10TA5 PO (16:40)
[2024-09-22] MEDS ORDERED: TRAZ-252 PO (16:40)
[2024-09-22] MEDS ORDERED: ONDA-284 PO (16:40)
[2024-09-22] MEDS ORDERED: GABA-1172 PO (16:40)
[2024-09-22 16:42] LABS: PHOSPHORUS LEVEL 3.2 MG/DL (2.4-5.1)
[2024-09-22 16:43] LABS: ERYTHROCYTE SEDIMENTATION RATE 80 mm/hr (0-20)
[2024-09-22] MEDS: MAG SULF 1GM/100ML (MAG RUN) 1 GM in IV 1 EA IV SCH (17:00)
[2024-09-22 17:03] LABS: PLATELET COUNT, AUTOMATED 306 10^3/uL (150-450)
[2024-09-22 17:29] LABS: PROCALCITONIN 8.71 ng/ml
[2024-09-22 17:30] LABS: D-DIMER QUANT 4.16 ug/mL (<0.5); INR 1.31; PARTIAL THROMBOPLASTIN TIME 33.8 SECONDS (24.8-34.2); PROTHROMBIN TIME 16.5 SECONDS (12.5-14.5)
[2024-09-22 17:34] LABS: C REACTIVE PROTEIN QUANTITATIV 35.09 MG/DL (<1.0)
[2024-09-22 20:00] VITALS: BP 115/56; TEMP 98.3
[2024-09-22] MEDS: VANCOMYCIN HCL 1,750 MG, VIAL MATE ADAPTER 1 EACH in NS 500 ML IV SCH (20:00)
[2024-09-22 20:11] LABS: ALBUMIN 1.8 G/DL (3.2-5.2); CALCIUM LEVEL 7.9 MG/DL (8.3-10.6); CREATININE FOR GFR 5.53 MG/DL (0.70-1.30); GLOMERULAR FILTRATION RATE 10.6 (>35); PHOSPHORUS LEVEL 4.6 MG/DL (2.4-5.1)
[2024-09-22 21:00] VITALS: BP 102/60; TEMP 98.9; O2SAT 95
[2024-09-22 22:34] VITALS: BP 104/56; TEMP 98.8; O2SAT 94
[2024-09-22] MEDS: ACETAMINOPHEN 325 MG TAB PO PRN (23:08)
[2024-09-22] MEDS: DOCUSATE SODIUM 100MG CAPSULE PO SCH (23:08)
[2024-09-22] MEDS: HEPARIN SOD (PORCINE) 5000UNITS/ML 1ML VIAL/SYRINGE SC SCH (23:09)
[2024-09-23] VITALS (8 sets, daily range): BP systolic 113–137; BP diastolic 54–61; TEMP 97–99.6; O2SAT 92–96
[2024-09-23] MEDS: CEFEPIME HCL 2 GM in DEXTROSE 5% (D5W) ADV/MINI-BAG 50 ML IV SCH (02:38)
[2024-09-23 07:09] LABS: BASO # 0.1 10^3/uL (0.0-0.2); BASO % 0.4 % (0.0-1.0); EOS % 0.1 % (0.0-3.0); HEMATOCRIT 26.6 % (42.0-52.0); HEMOGLOBIN 8.5 g/dl (13.5-17.5); LYMPH # 0.7 10^3/uL (1.5-5.0); LYMPH % 3.1 % (24.0-44.0); MEAN CORPUSCULAR HEMOGLOBIN 28.6 pg (27.0-33.0); MEAN CORPUSCULAR VOLUME 89.6 fl (80.0-96.0); MONO # 1.3 10^3/uL (0.0-0.8); MONO % 5.8 % (2.0-8.0); NEUTROPHILS # 18.7 10^3/uL (1.5-8.5); NEUTROPHILS % 81.9 % (36.0-66.0); PLATELET COUNT, AUTOMATED 330 10^3/uL (150-450); RED BLOOD COUNT 2.97 10^6/uL (4.30-6.10); WHITE BLOOD COUNT 22.8 10^3/uL (4.0-10.0)
[2024-09-23 07:37] LABS: VANCOMYCIN RANDOM 19.8 UG/ML
[2024-09-23 07:39] LABS: ALBUMIN 1.6 G/DL (3.2-5.2); CALCIUM LEVEL 7.8 MG/DL (8.3-10.6); CREATININE FOR GFR 5.63 MG/DL (0.70-1.30); GLOMERULAR FILTRATION RATE 10.3 (>35); PHOSPHORUS LEVEL 3.6 MG/DL (2.4-5.1); POTASSIUM SERUM 4.7 MMOL/L (3.5-5.1)
[2024-09-23] MEDS ORDERED: VANCOMYCIN INTERMITTENT/PULSE DOSING BY CLINICAL PHARMACIST PER DOSING PROTOCOL XX SCH (09:00)
[2024-09-23] MEDS: TAMSULOSIN 0.4 MG CAP PO SCH (12:07)
[2024-09-23] MEDS: VITAMIN D 1,000 INTERNATIONAL UNITS TABLET PO SCH (12:07)
[2024-09-23] MEDS: ONDANSETRON 4MG ORAL DISINTEGRATING TAB PO PRN (12:08)
[2024-09-23] MEDS: OMEPRAZOLE 20MG CAP PO SCH (12:08)
[2024-09-23] MEDS: CEFEPIME HCL 1 GM in DEXTROSE 5% (D5W) ADV/MINI-BAG 50 ML IV SCH (14:37)
[2024-09-24 04:00] VITALS: BP 130/60; TEMP 98.3; O2SAT 92
[2024-09-24 06:37] LABS: BASO # 0.1 10^3/uL (0.0-0.2); BASO % 0.3 % (0.0-1.0); EOS # 0.1 10^3/uL (0.0-0.5); EOS % 0.3 % (0.0-3.0); HEMATOCRIT 25.4 % (42.0-52.0); HEMOGLOBIN 8.1 g/dl (13.5-17.5); LYMPH # 0.8 10^3/uL (1.5-5.0); LYMPH % 3.8 % (24.0-44.0); MEAN CORPUSCULAR HEMOGLOBIN 28.2 pg (27.0-33.0); MEAN CORPUSCULAR HGB CONC 31.9 g/dl (32.0-36.5); MEAN CORPUSCULAR VOLUME 88.5 fl (80.0-96.0); MONO # 1.1 10^3/uL (0.0-0.8); NEUTROPHILS # 17.7 10^3/uL (1.5-8.5); NEUTROPHILS % 82.5 % (36.0-66.0); PLATELET COUNT, AUTOMATED 286 10^3/uL (150-450); RED BLOOD COUNT 2.87 10^6/uL (4.30-6.10); WHITE BLOOD COUNT 21.5 10^3/uL (4.0-10.0)
[2024-09-24 07:08] LABS: ALBUMIN 1.3 G/DL (3.2-5.2); CREATININE FOR GFR 5.72 MG/DL (0.70-1.30); GLOMERULAR FILTRATION RATE 10.2 (>35); PHOSPHORUS LEVEL 4.3 MG/DL (2.4-5.1); POTASSIUM SERUM 4.6 MMOL/L (3.5-5.1)
[2024-09-24 07:42] LABS: PROCALCITONIN 17.91 ng/ml
[2024-09-24 08:00] VITALS: BP 139/63; TEMP 98.2; O2SAT 93
[2024-09-24 08:43] LABS: ERYTHROCYTE SEDIMENTATION RATE 42 mm/hr (0-20)
[2024-09-24 12:00] VITALS: BP 118/58; TEMP 97; O2SAT 94
[2024-09-24 16:00] VITALS: BP 128/63; TEMP 96.7; O2SAT 95
[2024-09-24] MEDS: cefTRIAXone SOD 2 GM in DEXTROSE 5% (D5W) ADV/MINI-BAG 50 ML IV SCH (16:09)
[2024-09-24 20:29] VITALS: BP 114/56; TEMP 98.7; O2SAT 94
[2024-09-24 23:17] VITALS: BP 106/53; TEMP 97.9; O2SAT 96
[2024-09-25] VITALS (7 sets, daily range): BP systolic 109–157; BP diastolic 53–88; TEMP 97.5–99; O2SAT 90–93
[2024-09-25 05:52] LABS: HEMATOCRIT 25.7 % (42.0-52.0); HEMOGLOBIN 8.3 g/dl (13.5-17.5); MEAN CORPUSCULAR HEMOGLOBIN 28.6 pg (27.0-33.0); MEAN CORPUSCULAR HGB CONC 32.3 g/dl (32.0-36.5); MEAN CORPUSCULAR VOLUME 88.6 fl (80.0-96.0); PLATELET COUNT, AUTOMATED 266 10^3/uL (150-450); WHITE BLOOD COUNT 29.5 10^3/uL (4.0-10.0)
[2024-09-25 06:12] LABS: ALBUMIN 1.2 G/DL (3.2-5.2); CALCIUM LEVEL 7.9 MG/DL (8.3-10.6); CREATININE FOR GFR 5.56 MG/DL (0.70-1.30); GLOMERULAR FILTRATION RATE 10.5 (>35); PHOSPHORUS LEVEL 4.4 MG/DL (2.4-5.1); POTASSIUM SERUM 4.5 MMOL/L (3.5-5.1)
[2024-09-25 07:11] LABS: ATYPICAL LYMPH 2 % (0-5); LYMPHOCYTES 4 % (16-44); METAMYELOCYTES 2 % (0-0); MONOCYTES 4 % (0-5); NEUTROPHILS 74 % (28-66)
[2024-09-25 07:13] LABS: TOXIC VACUOLATION 1+
[2024-09-25 07:14] LABS: ANISOCYTOSIS 1+
[2024-09-25 07:15] LABS: DOHLE BODIES 1+; PLATELET ESTIMATE NORMAL (NORMAL)
[2024-09-25] MEDS ORDERED: PIPERACILLIN/TAZOBACTAM SOD 3.375 GM in DEXTROSE 5% (D5W) ADV/MINI-BAG 50 ML IV SCH (07:30)
[2024-09-25 08:44] LABS: PROCALCITONIN 11.09 ng/ml
[2024-09-25] MEDS: PIPERACILLIN/TAZOBACTAM SOD 2.25 GM in DEXTROSE 5% (D5W) ADV/MINI-BAG 50 ML IV SCH (10:42)
[2024-09-26] VITALS (7 sets, daily range): BP systolic 121–150; BP diastolic 60–65; TEMP 97.3–100.2; O2SAT 92–94
[2024-09-26 04:34] LABS: BASO # 0.2 10^3/uL (0.0-0.2); BASO % 0.4 % (0.0-1.0); EOS # 0.1 10^3/uL (0.0-0.5); EOS % 0.3 % (0.0-3.0); HEMATOCRIT 25.8 % (42.0-52.0); HEMOGLOBIN 8.5 g/dl (13.5-17.5); LYMPH # 0.9 10^3/uL (1.5-5.0); LYMPH % 2.7 % (24.0-44.0); MEAN CORPUSCULAR HEMOGLOBIN 28.6 pg (27.0-33.0); MEAN CORPUSCULAR HGB CONC 32.9 g/dl (32.0-36.5); MEAN CORPUSCULAR VOLUME 86.9 fl (80.0-96.0); MONO # 1.3 10^3/uL (0.0-0.8); MONO % 3.9 % (2.0-8.0); NEUTROPHILS # 27.6 10^3/uL (1.5-8.5); NEUTROPHILS % 81.8 % (36.0-66.0); PLATELET COUNT, AUTOMATED 275 10^3/uL (150-450); RED BLOOD COUNT 2.97 10^6/uL (4.30-6.10)
[2024-09-26 04:43] LABS: WHITE BLOOD COUNT 33.7 10^3/uL (4.0-10.0)
[2024-09-26 04:49] LABS: ERYTHROCYTE SEDIMENTATION RATE 103 mm/hr (0-20)
[2024-09-26 04:57] LABS: ALBUMIN 1.2 G/DL (3.2-5.2); CALCIUM LEVEL 8.1 MG/DL (8.3-10.6); CREATININE FOR GFR 5.84 MG/DL (0.70-1.30); GLOMERULAR FILTRATION RATE 9.9 (>35); PHOSPHORUS LEVEL 4.5 MG/DL (2.4-5.1); POTASSIUM SERUM 4.8 MMOL/L (3.5-5.1)
[2024-09-26 05:03] LABS: PROCALCITONIN 8.35 ng/ml
[2024-09-26 05:10] LABS: C REACTIVE PROTEIN QUANTITATIV 21.46 MG/DL (<1.0)
[2024-09-26] MEDS: LACTOBACILLUS ACIDOPHILUS CAP (BACID) PO SCH (08:41)
[2024-09-27] VITALS (7 sets, daily range): BP systolic 129–146; BP diastolic 60–67; TEMP 97–98.3; O2SAT 93–97
[2024-09-27] MEDS: cefTRIAXone SOD 2 GM in DEXTROSE 5% (D5W) ADV/MINI-BAG 50 ML IV SCH (05:10)
[2024-09-27 06:38] LABS: BASO # 0.1 10^3/uL (0.0-0.2); BASO % 0.3 % (0.0-1.0); EOS # 0.1 10^3/uL (0.0-0.5); EOS % 0.3 % (0.0-3.0); HEMATOCRIT 24.4 % (42.0-52.0); LYMPH # 1.7 10^3/uL (1.5-5.0); LYMPH % 4.7 % (24.0-44.0); MEAN CORPUSCULAR HGB CONC 32.8 g/dl (32.0-36.5); MEAN CORPUSCULAR VOLUME 88.4 fl (80.0-96.0); MONO # 1.3 10^3/uL (0.0-0.8); MONO % 3.5 % (2.0-8.0); NEUTROPHILS # 29.9 10^3/uL (1.5-8.5); NEUTROPHILS % 82.6 % (36.0-66.0); PLATELET COUNT, AUTOMATED 277 10^3/uL (150-450); RED BLOOD COUNT 2.76 10^6/uL (4.30-6.10)
[2024-09-27 06:46] LABS: ALBUMIN 1.3 G/DL (3.2-5.2); CALCIUM LEVEL 8.3 MG/DL (8.3-10.6); CREATININE FOR GFR 6.39 MG/DL (0.70-1.30); GLOMERULAR FILTRATION RATE 8.9 (>35); PHOSPHORUS LEVEL 5.2 MG/DL (2.4-5.1); POTASSIUM SERUM 4.3 MMOL/L (3.5-5.1)
[2024-09-27 06:50] LABS: WHITE BLOOD COUNT 36.2 10^3/uL (4.0-10.0)
[2024-09-27 07:06] LABS: C REACTIVE PROTEIN QUANTITATIV 17.61 MG/DL (<1.0)
[2024-09-27] MEDS ORDERED: HEPARIN 1,000UNITS/ML 10ML VIAL (FOR RADIOLOGY & DIALYSIS ONLY) XX SCH (10:05)
[2024-09-27] MEDS ORDERED: LIDOCAINE 1% SDV 5ML VIAL SC PRN (10:05)
[2024-09-27] MEDS ORDERED: HEPARIN 1,000UNITS/ML 10ML VIAL (FOR RADIOLOGY & DIALYSIS ONLY) IV PRN (10:05)
[2024-09-27] MEDS ORDERED: SODIUM CHLORIDE 0.9% 1000 ML IV PRN (10:05)
[2024-09-27 12:40] LABS: HEPATITIS B SURFACE ANTIBODY NEGATIVE (POSITIVE)
[2024-09-27 12:51] LABS: HEPATITIS B SURFACE ANTIGEN NEGATIVE (NEGATIVE)
[2024-09-27 13:13] LABS: HEPATITIS B CORE ANTIBODY IGM NEGATIVE (NEGATIVE); HEPATITIS C VIRUS ABY INDEX 0.04 INDEX (<0.8)
[2024-09-27] MEDS ORDERED: LIDOCAINE 1% MDV 20ML VIAL As Ordered ONE (15:22)
[2024-09-27] MEDS: LIDOCAINE 1% MDV 20ML VIAL SC ONE ×2 (16:09→16:10)
[2024-09-27] MEDS: HEPARIN 1,000UNITS/ML 10ML VIAL (FOR RADIOLOGY & DIALYSIS ONLY) IV STA (16:09)
[2024-09-28 04:58] VITALS: BP 134/61; TEMP 97.2; O2SAT 93
[2024-09-28] MEDS ORDERED: SODIUM CHLORIDE 0.9% 1000 ML IV PRN (06:00)
[2024-09-28] MEDS ORDERED: HEPARIN 1,000UNITS/ML 10ML VIAL (FOR RADIOLOGY & DIALYSIS ONLY) IV PRN (06:00)
[2024-09-28 06:41] LABS: ALBUMIN 1.3 G/DL (3.2-5.2); CALCIUM LEVEL 8.1 MG/DL (8.3-10.6); CREATININE FOR GFR 6.36 MG/DL (0.70-1.30); MAGNESIUM LEVEL 2.1 MG/DL (1.8-2.4); PHOSPHORUS LEVEL 5.5 MG/DL (2.4-5.1); POTASSIUM SERUM 4.5 MMOL/L (3.5-5.1)
[2024-09-28 06:43] LABS: HEPATITIS B SURFACE ANTIBODY NEGATIVE (POSITIVE)
[2024-09-28 06:48] LABS: PROCALCITONIN 3.13 ng/ml
[2024-09-28 06:55] LABS: HEPATITIS B SURFACE ANTIGEN NEGATIVE (NEGATIVE)
[2024-09-28 06:58] LABS: C REACTIVE PROTEIN QUANTITATIV 13.87 MG/DL (<1.0)
[2024-09-28 07:00] LABS: HEMATOCRIT 23.5 % (42.0-52.0); HEMOGLOBIN 7.6 g/dl (13.5-17.5); MEAN CORPUSCULAR HGB CONC 32.3 g/dl (32.0-36.5); MEAN CORPUSCULAR VOLUME 89.7 fl (80.0-96.0); PLATELET COUNT, AUTOMATED 288 10^3/uL (150-450); RED BLOOD COUNT 2.62 10^6/uL (4.30-6.10); WHITE BLOOD COUNT 26.1 10^3/uL (4.0-10.0)
[2024-09-28 07:16] LABS: HEPATITIS B CORE ANTIBODY IGM NEGATIVE (NEGATIVE); HEPATITIS C VIRUS ABY INDEX 0.04 INDEX (<0.8)
[2024-09-28 07:24] VITALS: BP 138/60; TEMP 97.4; O2SAT 94
[2024-09-28 08:20] LABS: LYMPHOCYTES 7 % (16-44); METAMYELOCYTES 1 % (0-0); MONOCYTES 2 % (0-5); NEUTROPHILS 89 % (28-66)
[2024-09-28 08:21] LABS: PLATELET ESTIMATE NORMAL (NORMAL)
[2024-09-28 11:58] VITALS: BP 141/65; TEMP 97.6; O2SAT 96
[2024-09-28] MEDS: HEPARIN 1,000UNITS/ML 10ML VIAL (FOR RADIOLOGY & DIALYSIS ONLY) XX SCH (16:43)
[2024-09-28 17:15] VITALS: BP 136/64; TEMP 97.6; O2SAT 94
[2024-09-28 19:50] VITALS: BP 143/67; TEMP 98.1; O2SAT 93
[2024-09-28 23:36] VITALS: BP 128/60; TEMP 98.2; O2SAT 92
[2024-09-29 04:08] VITALS: BP 135/63; TEMP 97.5; O2SAT 94
[2024-09-29] MEDS ORDERED: HEPARIN 1,000UNITS/ML 10ML VIAL (FOR RADIOLOGY & DIALYSIS ONLY) IV PRN (06:00)
[2024-09-29] MEDS ORDERED: SODIUM CHLORIDE 0.9% 1000 ML IV PRN (06:00)
[2024-09-29] MEDS ORDERED: LIDOCAINE 1% SDV 5ML VIAL SC PRN (06:00)
[2024-09-29 06:51] LABS: BASO # 0.1 10^3/uL (0.0-0.2); BASO % 0.3 % (0.0-1.0); EOS # 0.1 10^3/uL (0.0-0.5); EOS % 0.3 % (0.0-3.0); HEMATOCRIT 24.2 % (42.0-52.0); HEMOGLOBIN 7.8 g/dl (13.5-17.5); LYMPH # 1.3 10^3/uL (1.5-5.0); LYMPH % 6.5 % (24.0-44.0); MEAN CORPUSCULAR HEMOGLOBIN 28.1 pg (27.0-33.0); MEAN CORPUSCULAR HGB CONC 32.2 g/dl (32.0-36.5); MEAN CORPUSCULAR VOLUME 87.1 fl (80.0-96.0); MONO % 4.7 % (2.0-8.0); NEUTROPHILS # 16.4 10^3/uL (1.5-8.5); NEUTROPHILS % 81.1 % (36.0-66.0); PLATELET COUNT, AUTOMATED 314 10^3/uL (150-450); RED BLOOD COUNT 2.78 10^6/uL (4.30-6.10); WHITE BLOOD COUNT 20.2 10^3/uL (4.0-10.0)
[2024-09-29 07:06] LABS: ALBUMIN 1.5 G/DL (3.2-5.2); CALCIUM LEVEL 7.8 MG/DL (8.3-10.6); CREATININE FOR GFR 4.72 MG/DL (0.70-1.30); GLOMERULAR FILTRATION RATE 11.6 (>35); MAGNESIUM LEVEL 1.9 MG/DL (1.8-2.4)
[2024-09-29 07:38] VITALS: BP 158/61; TEMP 97.4; O2SAT 93
[2024-09-29] MEDS: HEPARIN 1,000UNITS/ML 10ML VIAL (FOR RADIOLOGY & DIALYSIS ONLY) XX SCH (09:41)
[2024-09-29 12:38] VITALS: BP 124/60; TEMP 97.6; O2SAT 93
[2024-09-29 15:45] VITALS: BP 136/62; TEMP 97.6; O2SAT 94
[2024-09-29 20:05] VITALS: BP 117/58; TEMP 97; O2SAT 95
[2024-09-29 23:01] VITALS: BP 130/60; TEMP 98.9; O2SAT 96
[2024-09-30 03:38] VITALS: BP 132/60; TEMP 97.8; O2SAT 93
[2024-09-30 05:47] LABS: BASO # 0.1 10^3/uL (0.0-0.2); BASO % 0.5 % (0.0-1.0); EOS # 0.1 10^3/uL (0.0-0.5); EOS % 0.4 % (0.0-3.0); HEMOGLOBIN 7.8 g/dl (13.5-17.5); LYMPH # 1.5 10^3/uL (1.5-5.0); LYMPH % 8.5 % (24.0-44.0); MEAN CORPUSCULAR HEMOGLOBIN 28.5 pg (27.0-33.0); MEAN CORPUSCULAR HGB CONC 32.5 g/dl (32.0-36.5); MEAN CORPUSCULAR VOLUME 87.6 fl (80.0-96.0); MONO # 1.2 10^3/uL (0.0-0.8); MONO % 6.8 % (2.0-8.0); NEUTROPHILS % 76.6 % (36.0-66.0); PLATELET COUNT, AUTOMATED 331 10^3/uL (150-450); RED BLOOD COUNT 2.74 10^6/uL (4.30-6.10)
[2024-09-30 06:08] LABS: ALBUMIN 1.6 G/DL (3.2-5.2); CALCIUM LEVEL 7.7 MG/DL (8.3-10.6); CREATININE FOR GFR 4.36 MG/DL (0.70-1.30); GLOMERULAR FILTRATION RATE 12.8 (>35); MAGNESIUM LEVEL 1.9 MG/DL (1.8-2.4); POTASSIUM SERUM 3.9 MMOL/L (3.5-5.1)
[2024-09-30] MEDS ORDERED: SODIUM CHLORIDE 0.9% 1000 ML IV PRN (06:50)
[2024-09-30] MEDS ORDERED: HEPARIN 1,000UNITS/ML 10ML VIAL (FOR RADIOLOGY & DIALYSIS ONLY) IV PRN (06:50)
[2024-09-30 08:00] VITALS: BP 153/66; TEMP 98.1; O2SAT 96
[2024-09-30] MEDS: HEPARIN 1,000UNITS/ML 10ML VIAL (FOR RADIOLOGY & DIALYSIS ONLY) XX SCH (09:42)
[2024-09-30 12:22] VITALS: BP 136/64; TEMP 97.4; O2SAT 92
[2024-09-30 13:05] LABS: PERCENT SATURATION 16.4 % (19.7-50.0)
[2024-09-30 16:05] VITALS: BP 137/67; TEMP 98.6; O2SAT 95
[2024-09-30 19:18] VITALS: BP 127/58; TEMP 98; O2SAT 96
[2024-09-30 23:13] VITALS: BP 105/51; TEMP 98.2; O2SAT 95
[2024-10-01 03:26] VITALS: BP 134/62; TEMP 97.4; O2SAT 94
[2024-10-01 05:26] LABS: HEMATOCRIT 23.5 % (42.0-52.0); HEMOGLOBIN 7.5 g/dl (13.5-17.5); MEAN CORPUSCULAR HEMOGLOBIN 28.2 pg (27.0-33.0); MEAN CORPUSCULAR HGB CONC 31.9 g/dl (32.0-36.5); MEAN CORPUSCULAR VOLUME 88.3 fl (80.0-96.0); PLATELET COUNT, AUTOMATED 345 10^3/uL (150-450); RED BLOOD COUNT 2.66 10^6/uL (4.30-6.10); WHITE BLOOD COUNT 13.9 10^3/uL (4.0-10.0)
[2024-10-01 05:48] LABS: ALBUMIN 1.7 G/DL (3.2-5.2); CALCIUM LEVEL 8.1 MG/DL (8.3-10.6); CREATININE FOR GFR 4.73 MG/DL (0.70-1.30); GLOMERULAR FILTRATION RATE 11.6 (>35); MAGNESIUM LEVEL 1.9 MG/DL (1.8-2.4); PHOSPHORUS LEVEL 4.9 MG/DL (2.4-5.1); POTASSIUM SERUM 4.1 MMOL/L (3.5-5.1)
[2024-10-01 06:38] VITALS: BP 140/63; TEMP 97.8; O2SAT 92
[2024-10-01 06:43] LABS: BASOPHILS 1 % (0-1); LYMPHOCYTES 6 % (16-44); METAMYELOCYTES 1 % (0-0); MONOCYTES 4 % (0-5); MYELOCYTES 1 % (0-0); NEUTROPHILS 85 % (28-66)
[2024-10-01 06:45] LABS: ANISOCYTOSIS 1+; PLATELET ESTIMATE NORMAL (NORMAL)
[2024-10-01 12:00] VITALS: BP 145/65; TEMP 97.5; O2SAT 95
[2024-10-01 15:31] VITALS: BP 160/67; TEMP 98.1; O2SAT 96
[2024-10-01] MEDS: FERRIC CARBOXYMALTOSE INJ 750 MG, VIAL MATE ADAPTER 1 EACH in NS 100 ML IV ONE (15:32)
[2024-10-01 19:16] VITALS: BP 154/70; TEMP 97.5; O2SAT 95
[2024-10-01 20:00] VITALS: O2SAT 95
[2024-10-02 03:17] VITALS: BP 137/63; TEMP 97.3; O2SAT 96
[2024-10-02 04:07] VITALS: BP 137/63; PULSE 84; O2SAT 96
[2024-10-02 07:21] VITALS: BP 151/68; TEMP 97.6; O2SAT 96
[2024-10-02 08:12] LABS: BASO # 0.1 10^3/uL (0.0-0.2); BASO % 0.5 % (0.0-1.0); EOS # 0.1 10^3/uL (0.0-0.5); EOS % 0.5 % (0.0-3.0); HEMATOCRIT 24.6 % (42.0-52.0); HEMOGLOBIN 7.8 g/dl (13.5-17.5); LYMPH # 1.1 10^3/uL (1.5-5.0); LYMPH % 8.6 % (24.0-44.0); MEAN CORPUSCULAR HGB CONC 31.7 g/dl (32.0-36.5); MEAN CORPUSCULAR VOLUME 88.2 fl (80.0-96.0); MONO # 0.9 10^3/uL (0.0-0.8); MONO % 7.2 % (2.0-8.0); NEUTROPHILS # 9.8 10^3/uL (1.5-8.5); NEUTROPHILS % 78.9 % (36.0-66.0); PLATELET COUNT, AUTOMATED 385 10^3/uL (150-450); RED BLOOD COUNT 2.79 10^6/uL (4.30-6.10); WHITE BLOOD COUNT 12.4 10^3/uL (4.0-10.0)
[2024-10-02 08:49] LABS: ALBUMIN 1.9 G/DL (3.2-5.2); C REACTIVE PROTEIN QUANTITATIV 11.66 MG/DL (<1.0); CALCIUM LEVEL 8.3 MG/DL (8.3-10.6); CREATININE FOR GFR 6.48 MG/DL (0.70-1.30); GLOMERULAR FILTRATION RATE 7.9 (>35); POTASSIUM SERUM 4.1 MMOL/L (3.5-5.1)
[2024-10-02] MEDS: (RENVELA) SEVELAMER **CARBONate** 800 MG TAB PO SCH (11:41)
[2024-10-02 12:05] VITALS: BP 163/72; TEMP 96.8; O2SAT 95
[2024-10-02] MEDS ORDERED: NEPR1LIQ2 PO (13:22)
[2024-10-02 18:30] VITALS: BP 141/85; TEMP 97.6; O2SAT 96
[2024-10-02 20:36] VITALS: BP 146/66; TEMP 97.2; O2SAT 92
[2024-10-03 04:15] VITALS: BP 166/69; TEMP 97.3; O2SAT 92
[2024-10-03] MEDS ORDERED: SODIUM CHLORIDE 0.9% 1000 ML IV PRN (06:00)
[2024-10-03] MEDS ORDERED: HEPARIN 1,000UNITS/ML 10ML VIAL (FOR RADIOLOGY & DIALYSIS ONLY) IV PRN ×2 (06:00→06:50)
[2024-10-03 06:46] LABS: BASO # 0.1 10^3/uL (0.0-0.2); BASO % 0.5 % (0.0-1.0); EOS # 0.1 10^3/uL (0.0-0.5); EOS % 0.5 % (0.0-3.0); HEMATOCRIT 23.9 % (42.0-52.0); HEMOGLOBIN 7.7 g/dl (13.5-17.5); LYMPH % 8.9 % (24.0-44.0); MEAN CORPUSCULAR HEMOGLOBIN 28.7 pg (27.0-33.0); MEAN CORPUSCULAR HGB CONC 32.2 g/dl (32.0-36.5); MEAN CORPUSCULAR VOLUME 89.2 fl (80.0-96.0); MONO % 8.9 % (2.0-8.0); NEUTROPHILS # 8.7 10^3/uL (1.5-8.5); NEUTROPHILS % 78.9 % (36.0-66.0); PLATELET COUNT, AUTOMATED 406 10^3/uL (150-450); RED BLOOD COUNT 2.68 10^6/uL (4.30-6.10)
[2024-10-03] MEDS ORDERED: NS (Normal Saline) 0.9% 1,000 ML IV SCH (07:10)
[2024-10-03 07:14] LABS: ALBUMIN 1.9 G/DL (3.2-5.2); CALCIUM LEVEL 8.6 MG/DL (8.3-10.6); CREATININE FOR GFR 7.41 MG/DL (0.70-1.30); GLOMERULAR FILTRATION RATE 6.8 (>35); MAGNESIUM LEVEL 2.1 MG/DL (1.8-2.4); PHOSPHORUS LEVEL 6.7 MG/DL (2.4-5.1); POTASSIUM SERUM 4.2 MMOL/L (3.5-5.1)
[2024-10-03] MEDS: ceFAZolin SODIUM 2 GM in DEXTROSE 5% (D5W) ADV/MINI-BAG 50 ML IV ONE (07:25)
[2024-10-03] MEDS: NS (Normal Saline) 0.9% 1,000 ML IV SCH (07:26)
[2024-10-03] MEDS: fentaNYL 100 MCG/2 ML INJECTION IV PRN (07:50)
[2024-10-03] MEDS: MIDAZOLAM INJ 2MG/2ML VIAL IV PRN (07:50)
[2024-10-03] MEDS: LIDOCAINE 1% MDV 20ML VIAL SC STA (08:17)
[2024-10-03] MEDS: HEPARIN 1,000UNITS/ML 10ML VIAL (FOR RADIOLOGY & DIALYSIS ONLY) XX SCH (09:54)
[2024-10-03] MEDS: DARBEPOETIN 100MCG/0.5ML *DIALYSIS* SYRINGE IV SCH (11:18)
[2024-10-03 12:53] VITALS: BP 137/62; TEMP 98; O2SAT 94
[2024-10-03] MEDS ORDERED: NORV5TAB PO (14:14)
[2024-10-03] MEDS ORDERED: SEVE800T3 PO (14:16)
== END 2024-10-03 16:25 | disposition home or self-care (01) | DRG 871 ==
LOC: EDBD 11:13 → M ED 11:13 → EDBEDREQSVC 15:02 → M ED INP 16:05 → M PCU 22:21
PROVIDERS: ADMIT Student in an Organized Health Care Education/Training Program; ATTEND Internal Medicine
PROC: 5A1D70Z Performance of Urinary Filtration, Intermittent, Less than 6 Hours Per Day (ICD-10-PCS; 2024-09-28)
PROC: 02HV33Z Insertion of Infusion Device into Superior Vena Cava, Percutaneous Approach (ICD-10-PCS; principal; 2024-10-03 07:30)
PROC: 0JH60XZ Insertion of Tunneled Vascular Access Device into Chest Subcutaneous Tissue and Fascia, Open Approach (ICD-10-PCS; 2024-10-03 07:30)
DX: A41.9 Sepsis, unspecified organism (principal); N17.0 Acute kidney failure with tubular necrosis; E87.1 Hypo-osmolality and hyponatremia; E87.20 Acidosis, unspecified; C20 Malignant neoplasm of rectum; Z68.41 Body mass index [BMI] 40.0-44.9, adult; N12 Tubulo-interstitial nephritis, not specified as acute or chronic; T83.511A Infection and inflammatory reaction due to indwelling urethral catheter, initial encounter; N39.0 Urinary tract infection, site not specified; N18.30 Chronic kidney disease, stage 3 unspecified; K21.9 Gastro-esophageal reflux disease without esophagitis; E66.813 Obesity, class 3; I95.9 Hypotension, unspecified; I12.9 Hypertensive chronic kidney disease with stage 1 through stage 4 chronic kidney disease, or unspecified chronic kidney disease; B96.1 Klebsiella pneumoniae [K. pneumoniae] as the cause of diseases classified elsewhere; N40.0 Benign prostatic hyperplasia without lower urinary tract symptoms; M19.90 Unspecified osteoarthritis, unspecified site; E55.9 Vitamin D deficiency, unspecified; Y84.6 Urinary catheterization as the cause of abnormal reaction of the patient, or of later complication, without mention of misadventure at the time of the procedure; C61 Malignant neoplasm of prostate; Z79.899 Other long term (current) drug therapy; D64.81 Anemia due to antineoplastic chemotherapy; Z66 Do not resuscitate; D50.9 Iron deficiency anemia, unspecified

== ENCOUNTER → 2024-10-19 | Outpatient (CLI) | payer MEDICARE ==
[~2024-10-19] MED LIST changes: -FLOM0.4C39 PO; +GABA-1172; +GABA-1172 PO; +NEPR1LIQ2 PO; +SEVE800T3 PO; +TAMS-18 PO
== END ==
LOC: M ONCR 09:32
PROVIDERS: ATTEND General Practice
DX: C20 Malignant neoplasm of rectum (principal); C61 Malignant neoplasm of prostate; Z79.899 Other long term (current) drug therapy; Z90.79 Acquired absence of other genital organ(s); Z92.3 Personal history of irradiation; Z92.21 Personal history of antineoplastic chemotherapy; Z99.2 Dependence on renal dialysis

== ENCOUNTER → 2024-12-28 | Outpatient (CLI) | payer MEDICARE ==
[~2024-12-28] MED LIST changes: +SERT50TA29
== END ==
LOC: M PLARAD 13:54
PROVIDERS: ATTEND Specialist
DX: C20 Malignant neoplasm of rectum (principal)

== ENCOUNTER → 2025-01-08 | Outpatient (REF) | payer MEDICARE ==
[~2025-01-08] MED LIST changes: +B-12100010 PO; +MULT-90 PO
[2025-01-08 18:56] LABS: BASO # 0.0 10^3/uL (0.0-0.2); BASO % 0.5 % (0.0-1.0); EOS # 0.1 10^3/uL (0.0-0.5); EOS % 1.5 % (0.0-3.0); LYMPH # 2.1 10^3/uL (1.5-5.0); LYMPH % 24.9 % (24.0-44.0); MONO # 0.7 10^3/uL (0.0-0.8); MONO % 8.2 % (2.0-8.0); NEUTROPHILS # 5.5 10^3/uL (1.5-8.5); NEUTROPHILS % 63.8 % (36.0-66.0); PLATELET COUNT, AUTOMATED 300 10^3/uL (150-450)
[2025-01-08 19:27] LABS: ALT/SGPT 20 U/L (7.0-40); AST/SGOT 17 U/L (<34); CALCIUM LEVEL 9.3 MG/DL (8.3-10.6); CARBON DIOXIDE LEVEL 24 MMOL/L (20-31); CHLORIDE LEVEL 101 MMOL/L (98-107); CREATININE FOR GFR 1.86 MG/DL (0.70-1.30); GLOMERULAR FILTRATION RATE 35.5 (>35); POTASSIUM SERUM 4.1 MMOL/L (3.5-5.1); SODIUM LEVEL 142 MMOL/L (136-145)
[2025-01-09 08:54] LABS: MAGNESIUM LEVEL 1.5 MG/DL (1.8-2.4)
== END ==
LOC: M LAB REF 17:23
PROVIDERS: ATTEND Specialist
DX: C18.9 Malignant neoplasm of colon, unspecified (principal)

== ENCOUNTER → 2025-01-18 | Outpatient (CLI) | payer MEDICARE | LOC: M ONCR 10:42 | PROVIDERS: ATTEND General Practice | DX: C20 Malignant neoplasm of rectum (principal); C61 Malignant neoplasm of prostate; Z92.3 Personal history of irradiation; Z79.818 Long term (current) use of other agents affecting estrogen receptors and estrogen levels; Z92.21 Personal history of antineoplastic chemotherapy; Z79.899 Other long term (current) drug therapy; N39.3 Stress incontinence (female) (male) ==

== ENCOUNTER → 2025-02-07 | Outpatient (CLI) | payer MEDICARE ==
[~2025-02-07] MED LIST changes: +MAGN400C PO; +TRAM50TA2
== END ==
LOC: M RAD 12:11
PROVIDERS: ATTEND Internal Medicine Nephrology
DX: R33.9 Retention of urine, unspecified (principal)

== ENCOUNTER → 2025-02-15 | Outpatient (CLI) | payer MEDICARE ==
[2025-02-15 13:35] VITALS: BP 139/65; TEMP 97.3; O2SAT 97
[2025-02-15] MEDS: LIDOCAINE 1% MDV 20 ML VIAL SC SCH (14:16)
== END ==
LOC: M IRPRO 13:16
PROVIDERS: ATTEND Internal Medicine Nephrology
DX: N18.9 Chronic kidney disease, unspecified (principal)

== ENCOUNTER → 2025-03-29 | Outpatient (CLI) | payer MEDICARE ==
[~2025-03-29] MED LIST changes: +POTA10809 PO; +PROHANCE 279.3MG/ML 15ML VIAL ONE; +PROHANCE 279.3MG/ML 5ML VIAL ONE
== END ==
LOC: M PLAIMG 10:22
PROVIDERS: ATTEND Specialist
DX: C20 Malignant neoplasm of rectum (principal)
CPT/HCPCS: 72197; A9576